=== PATIENT | female | born 1975 | race Caucasian/White ===

== ENCOUNTER 2016-10-28 14:25 | Emergency (ER) | payer OTHER, BC ==
[~2016-10-28] VITALS: Ht 162.6 cm; Wt 58.6 kg
[2016-10-28 14:26] VITALS: TEMP 37.2; Ht 162.6 cm; Wt 58.6 kg
[2016-10-28] MEDS ORDERED: ACETAMINOPHEN 325 MG TAB PO STA (15:22)
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
[2016-10-28] MEDS ORDERED: CYCL10TA6 PO (15:51)
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
[2016-10-28 16:07] VITALS: BP 116/76; PULSE 71; O2SAT 100
== END 2016-10-28 16:08 | disposition home or self-care (01) ==
LOC: C.EDB 14:26 → C.EDD 16:08
DX: M54.2 Cervicalgia (principal); V89.2XXA Person injured in unspecified motor-vehicle accident, traffic, initial encounter; Y92.488 Other paved roadways as the place of occurrence of the external cause